=== PATIENT | female | born 1985 | race American Indian/Alaskan Native ===

== ENCOUNTER 2016-09-26 19:49 | Emergency (ER) | payer SELFPAY ==
[2016-09-26] MEDS ORDERED: TYLENOL ONE (20:22)
[2016-09-26 20:24] VITALS: BP 121/64
[2016-09-26] MEDS ORDERED: TYLENOL PO ONE (20:24)
--- NOTE | 2016-09-26 22:54 | Emergency Department Report ---
HPI - General Chief Complaint: Sore Throat Time Seen by Provider: 09/26/16 22:45 - HPI HPI: 31-year-old -Serbian female comes in for complaint of sore throat, fever , difficulty swallowing, headache and body aches. She has no known allergies no past medical history and currently takes no medication. Patient denies any nausea vomiting no nasal congestion or runny nose no runny eyes. ED Past Medical Hx - Past Medical History Previous Medical History?: No - Surgical History Additional Surgical History: X 1 - Social History Smoking Status: Never Smoker - Medications Home Medications: Home Medications Medication Instructions Recorded Confirmed Last Taken Type Ibuprofen [Motrin 600 MG tab] 600 mg PO Q8H PRN #30 tablet 09/26/16 Unknown Rx ED Review of Systems ROS: Stated complaint: FLU SX Other details as noted in HPI Physical Exam - Physical Exam Vital Signs: Vital Signs 09/26/16 20:16 Temperature 100.4 F H Pulse Rate 100 H Respiratory 16 Rate Blood Pressure 121/64 Blood Pressure 121/64 [Left] O2 Sat by Pulse 100 Oximetry General: GENERAL: Alert and oriented x3, no apparent distress, Normal Gait, atraumatic. HEAD: Head is normocephalic and a-traumatic. EYES: Extra ocular muscles are intact. Pupils are equal, round, and reactive to light and accommodation. EARS: symetrical, atraumatic, non tender, ear canal clear and moderate cerumen, tympanic membrance non inflamed. gross auditory nml bilaterally. NOSE: Nose symetrical, Nontender,Nares appeared normal. MOUTH:Mouth is well hydrated and without lesions. Tonsils erythematous and swollen, Uvula midline, Tongue not elevated. Mucous membranes are moist. Posterior pharynx clear, no exudate or lesions. Patent airways. NECK: Supple. Non edematous, No carotid bruits. No lymphadenopathy or thyromegaly. LUNGS: Symetrical with respiration, No wheezing, no rales or crackles, CTAB. HEART: S1, S2 present, tachycardia rate and rhythm without murmur, no rubs, no gallops. ABDOMEN: No organomegaly was noted,Positive bowel sounds, soft, and non- distended. . Nontender to palpation on all Quadrants, NO CVA tenderness. EXTREMITIES/MUSCULOSKELETAL: No cyanosis, clubbing, rash, lesions or edema. Full ROM bilaterally. UE/LE Pulses 2+ bilaterally. LE and UE 5+ strength bilaterally NEUROLOGIC: No focal Deficit, Cranial nerves II through XII are grossly intact. No loss of sensation, No facial droop, Negative rhomberg. PSYCHIATRIC: Mood is congruent with affect, denies suicidal or homicidal ideations. SKIN: Warm and dry, No lesions, No ulceration or induration present ED Course Vital Signs 09/26/16 20:16 Temperature 100.4 F H Pulse Rate 100 H Respiratory 16 Rate Blood Pressure 121/64 Blood Pressure 121/64 [Left] O2 Sat by Pulse 100 Oximetry ED Medical Decision Making - Medical Decision Making Been evaluated by this provider in fast track. Patient was given medication for fever in triage. This provider sent out a rapid strep as well as influenza. Discussed with patient that we will determine her discharge once we have the results back patient verbalized understanding Critical care attestation.: If time is entered above; I have spent that time in minutes in the direct care of this critically ill patient, excluding procedure time. ED Disposition Clinical Impression: Strep pharyngitis Disposition: DISCHARGED TO HOME OR SELFCARE Is pt being admited?: No Does the pt Need Aspirin: No Condition: Stable Instructions: Strep Throat (ED) Additional Instructions: You can take Tylenol for pain management. Have been given a penicillin shot which will cover U for the strep throat. Please drink plenty of fluids. Avoid contact with other people for the next 24 hours. Prescriptions: Ibuprofen [Motrin 600 MG tab] 600 mg PO Q8H PRN #30 tablet PRN Reason: Pain Referrals: PRIMARY CARE, [Primary Care Provider] - 3-5 Days Forms: Work/School Release Form(ED)
[2016-09-26] MEDS ORDERED: BICILLIN L-A IM ONE ×2 (23:14→23:20)
== END 2016-09-26 23:44 | disposition home or self-care (01) ==
LOC: ED 19:49
DX: J02.0 Streptococcal pharyngitis (principal)
CPT/HCPCS: 87400; 87430; 96372; 99283; J0561

== ENCOUNTER 2017-02-24 13:46 | Emergency (ER) | payer SELFPAY ==
--- NOTE | 2017-02-24 14:45 | Emergency Department Report ---
Chief Complaint: Vaginal Bleeding Stated Complaint: VAG BLEED (CLOGS) Time Seen by Provider: 02/24/17 14:43 - HPI History of Present Illness: pt states she has been bleeding vaginally for 3 days, + large clots PT states she is using a pad an hour - ROS Review of Systems: + irregular cycle (early) + heavy bleeding - Exam Physical Exam: pt looks well, non toxic gcs 15 MSE screening note: Focused history and physical exam performed. Due to findings the following was ordered: labs, us ED Disposition for MSE Condition: Stable
[2017-02-24 14:46] VITALS: BP 118/78
[2017-02-24 15:15] LABS: Basophils % (Auto) 0.8 % (0.0-1.8); Hematocrit 32.9 % (30.3-42.9); Hemoglobin 10.3 gm/dl (10.1-14.3); Mean Corpuscular HGB Conc 31 % (30-34); Mean Corpuscular Volume 74 fl (79-97); Platelet Count 444 K/mm3 (140-440); Red Blood Count 4.47 M/mm3 (3.65-5.03); Red Cell Distribution Width 16.8 % (13.2-15.2); White Blood Count 7.2 K/mm3 (4.5-11.0)
[2017-02-24 15:27] LABS: Alanine Aminotransferase 11 units/L (7-56); Albumin 4.1 g/dL (3.9-5); Albumin/Globulin Ratio 1.2 %; Alkaline Phosphatase 47 units/L (35-129); Anion Gap 15 mmol/L; Bilirubin,Total < 0.20 mg/dL (0.1-1.2); Blood Urea Nitrogen 10 mg/dL (7-17); Calcium 8.5 mg/dL (8.4-10.2); Carbon Dioxide 26 mmol/L (22-30); Chloride 102.7 mmol/L (98-107); Glucose 74 mg/dL (65-100); Potassium 3.5 mmol/L (3.6-5.0); Sodium 140 mmol/L (137-145); Total Protein 7.5 g/dL (6.3-8.2)
[2017-02-24 15:31] LABS: Mean Corpuscular Hemoglobin 23 pg (28-32)
--- NOTE | 2017-02-24 16:47 | Ultrasound Report ---
ULTRASOUND PELVIS COMPLETE - TRANSABDOMINAL AND TRANSVAGINAL: INDICATION: Dysfunctional uterine bleeding, midline pelvic pain. COMPARISON: None similar at this institution. FINDINGS: Transabdominal and transvaginal pelvic sonography demonstrates normal uterus estimated at 9 x 5 x 5.8 cm. Endometrial thickness estimated at 1.4 cm. No significant free fluid. Small nabothian cyst. Physiologic bilateral ovaries, estimated at 3.6 x 2.5 x 2.3 cm on the right and 3.7 x 2 x 2.9 cm on the left. CONCLUSION: Normal pelvic sonogram, as described. Thank you for the opportunity to participate in this patient's care.
[2017-02-24 17:44] LABS: Bilirubin,Urine NEG (Negative); Blood,Urine LG (Negative); Ketones,Urine NEG (Negative); Leukocyte Esterase,Urine NEG (Negative); Nitrite,Urine NEG (Negative); Protein,Urine <15 mg/dL mg/dL (Negative); Urobilinogen,Urine < 2.0 mg/dL (<2.0); WBC,Urine < 1.0 /HPF (0.0-6.0)
--- NOTE | 2017-02-24 21:42 | Emergency Department Report ---
Entered by OLINDA BARNARD, acting as scribe for JET BUCKNER NP. ED Female HPI - General Chief complaint: Vaginal Bleeding Stated complaint: VAG BLEED (CLOGS) Time Seen by Provider: 02/24/17 14:43 Source: patient Mode of arrival: Ambulatory Limitations: No Limitations - History of Present Illness Initial comments: This is a 31 y/o female, nontoxic, well nourished in appearance, no acute signs of distress with no significant PMHx presents to the ED c/o vaginal bleeding with large clots that began 3 days ago during menstrual cycle. Patient states that she uses one menstrual pad every two hours. Associated symptoms include 8/ 10, cramping low pelvic pain, but she denies nausea, vomiting, abdominal pain, diarrhea, fever, chills, chest pain, SOB, [place] or dizziness, numbness, tingling. Patient states she usually experiences cramping towards the end of her menstrual periods. Reports she started her menstrual period early this month with the onset of 3 days ago. Denies PMHx of fibroids. Reports the last time she had an annual pap smear was last year with normal findings. LMP 02/22/2017. NKDA. ÁLVAREZ Complaint: vaginal bleeding, pelvic pain Onset/Timin -: days(s) Location: other (low pelvic ) Severity: severe Severity scale (0 -10): 8 Quality: cramping Consistency: constant Improves with: none Worsens with: movement Are you Now?: No Last Menstrual Period: 02/22/17 EDC: 11/29/17 Associated Symptoms: denies other symptoms, vaginal bleeding, other (pelvic cramping pain). denies: vaginal discharge, abdominal pain, nausea/vomiting, fever/chills, headaches, loss of appetite, dysuria, hematuria, rash, seizure, shortness of breath, syncope, weakness - Related Data Previous Rx's Medication Instructions Recorded Last Taken Type Ibuprofen [Motrin 600 MG tab] 600 mg PO Q8H PRN #30 tablet 09/26/16 Unknown Rx metroNIDAZOLE [Flagyl] 500 mg PO Q12HR #14 tab 02/24/17 Unknown Rx Allergies Allergy/AdvReac Type Severity Reaction Status Date / Time No Known Allergies Allergy Unverified 09/26/16 20:24 ED Review of Systems Comment: All other systems reviewed and negative Constitutional: denies: chills, diaphoresis, fever, weakness Eyes: denies: eye pain, eye discharge, vision change ENT: denies: ear pain, throat pain Respiratory: denies: cough, orthopnea, shortness of breath, SOB with exertion, SOB at rest, stridor, wheezing Cardiovascular: denies: chest pain, palpitations, dyspnea on exertion, orthopnea , edema, syncope, paroxysmal nocturnal dyspnea Endocrine: no symptoms reported Gastrointestinal: other (pelvic pain). denies: abdominal pain, nausea, vomiting , diarrhea, constipation, hematemesis, melena, hematochezia Genitourinary: other (vaginal bleeding). denies: urgency, dysuria, frequency, hematuria, discharge, abnormal menses, dyspareunia Musculoskeletal: denies: back pain, joint swelling, arthralgia Skin: denies: rash, lesions Neurological: denies: headache, weakness, numbness, paresthesias Psychiatric: denies: anxiety, depression Hematological/Lymphatic: denies: easy bleeding, easy bruising ED Past Medical Hx - Past Medical History Previous Medical History?: No - Surgical History Additional Surgical History: X 1. tubal ligation - Family History Family history: no significant - Social History Smoking Status: Never Smoker Substance Use Type: None - Medications Home Medications: Home Medications Medication Instructions Recorded Confirmed Last Taken Type Ibuprofen [Motrin 600 MG tab] 600 mg PO Q8H PRN #30 tablet 09/26/16 Unknown Rx metroNIDAZOLE [Flagyl] 500 mg PO Q12HR #14 tab 02/24/17 Unknown Rx ED Physical Exam - General Limitations: No Limitations General appearance: alert, in no apparent distress - Head Head exam: Present: atraumatic, normocephalic - Eye Eye exam: Present: normal appearance, PERRL, EOMI. Absent: scleral icterus, conjunctival injection, nystagmus, periorbital swelling, periorbital tenderness Pupils: Present: normal accommodation - ENT ENT exam: Present: normal exam, normal orophraynx, mucous membranes moist, TM's normal bilaterally, normal external ear exam - Neck Neck exam: Present: normal inspection, full ROM. Absent: tenderness, meningismus, lymphadenopathy, thyromegaly - Respiratory Respiratory exam: Present: normal lung sounds bilaterally. Absent: respiratory distress, wheezes, rales, rhonchi, stridor, chest wall tenderness, accessory muscle use, decreased breath sounds, prolonged expiratory - Cardiovascular Cardiovascular Exam: Present: regular rate, normal rhythm, normal heart sounds. Absent: systolic murmur, diastolic murmur, rubs, gallop - GI/Abdominal GI/Abdominal exam: Present: soft, normal bowel sounds. Absent: distended, tenderness, guarding, rebound, rigid, mass, bruit, hernia - Rectal Rectal exam: Present: deferred - External exam: Present: normal external exam, other (Olinda Evon quill fixer present during exam). Absent: erythema, swelling, lesions, lacerations, ecchymosis, bleeding Speculum exam: Present: normal speculum exam, vaginal bleeding, other (Olinda Evon quill fixer present during exam. No masses noted. No discharge.). Absent : erythema, vaginal discharge, cervical discharge, foreign body, tissue, laceration Bi-manual exam: Present: normal bi-manual exam, other (Olinda Evon quill fixer present during exam). Absent: cervical motion tendernes, adnexal tenderness, adnexal mass, uterine enlargement, uterine tenderness - Extremities Exam Extremities exam: Present: normal inspection, full ROM, normal capillary refill. Absent: tenderness, pedal edema, joint swelling, calf tenderness - Back Exam Back exam: Present: normal inspection, full ROM. Absent: tenderness, CVA tenderness (R), CVA tenderness (L), muscle spasm, paraspinal tenderness, vertebral tenderness, rash noted - Neurological Exam Neurological exam: Present: alert, oriented X3, CN II-XII intact, normal gait, reflexes normal. Absent: motor sensory deficit - Psychiatric Psychiatric exam: Present: normal affect, normal mood - Skin Skin exam: Present: warm, dry, intact. Absent: rash ED Course Vital Signs 02/24/17 14:41 Temperature 98.6 F Pulse Rate 76 Respiratory 16 Rate Blood Pressure 118/78 O2 Sat by Pulse 99 Oximetry - Reevaluation(s) Reevaluation #1: 02/24/17 16:23 Patient speaks in full sentences with no signs of distress noted. ED Medical Decision Making - Lab Data Result diagrams: 02/24/17 14:55 02/24/17 14:55 - Medical Decision Making Ed course: This is a 31-year-old female that presents with menstrual cycle and BV 1- patient was examined by myself.. Patient is stable. Patient received ultrasound of pelvis/transvaginal with normal findings and no abnormalities. Patient was notified of findings with no further questions nor by the patient. 2-normal pelvic exam with no signs of any mass or discharge noted. There was slight vaginal bleeding that is consistent with menstrual cycle. No clots or any other abnormalities noted. Negative cervical motion tenderness. 3- patient was referred to follow up with a door closer in 3-5 days or if symptoms worsen return to emergency room as soon as possible. 4- CBC, UA, test, and BMP obtained with negative findings of any abnormalities. Normal H&H. 5- At time time of discharge, the patient does not seem toxic or ill in appearance. No acute signs of distress noted. Patient agrees to discharge treatment plan of care. No further questions noted by the patient. 6- wet prep and gonorrhea Chlamydia has been obtained. Wet prep indicates BV. Pt well be treated with flagyl. ED Disposition Clinical Impression: Vaginal bleeding, Bacterial vaginosis Disposition: TO HOME OR SELFCARE Is pt being admited?: No Does the pt Need Aspirin: No Condition: Stable Instructions: Menstruation (ED), Bacterial Vaginosis (ED) Additional Instructions: Follow-up with your primary care doctor/door closer in 3-5 days or if symptoms worsen and continue return to emergency room as soon as possible. Return and 3 days to medical records to obtain your gonorrhea/Chlamydia results. Take Flagyl as prescribed. Do not consume any alcohol while taking Flagyl. Prescriptions: metroNIDAZOLE [Flagyl] 500 mg PO Q12HR #14 tab Referrals: PRIMARY CAREMD [Primary Care Provider] - 3-5 Days ALPA NARAYAN MD [Staff Physician] - 3-5 Days SUKH LADD MD [Staff Physician] - 3-5 Days [facility] [Outside] - 3-5 Days [facility] [Outside] - 3-5 Days Forms: Work/School Release Form(ED), STI Treatment and Prevention This documentation as recorded by the EVON orona JASMINE,accurately reflects the service I personally performed and the decisions made by me,JET BUCKNER, FATIMAH.
== END 2017-02-24 18:48 | disposition home or self-care (01) ==
LOC: ED 13:46
DX: N93.9 Abnormal uterine and vaginal bleeding, unspecified (principal); N76.0 Acute vaginitis
CPT/HCPCS: 36415; 76830; 76856; 80053; 81001; 84703; 85025; 87210; 87591; 99284